=== PATIENT | female | born 1940 | race Caucasian/White ===

== ENCOUNTER 2017-12-22 16:00 | Observation (INO) ==
--- NOTE | 2017-12-22 18:21 | ED ---
HPI General Chief complaint: Altered Mental Status Stated complaint: Phy Sent/Neuro Time Seen by Provider: 12/22/17 17:31 Source: patient, family (caregiver), RN notes reviewed and old records reviewed Mode of arrival: ambulatory History of Present Illness HPI narrative: 77yF presenting with confusion. The patient was admitted several weeks ago to [facility] for encephalopathy (uncertain etiology), had a routine follow up appointment with her neurologist today and was sent to the ED for increased confusion from baseline. The patient states that for the past 1-2 weeks she's felt "foggy" and has a hard time finishing sentences or remembering to do things. She denies headache, fever or chills, cough, chest pain, nausea, or dysuria. She admits to chronic loose stools. She says "my doctor went down on 1 of my medications to 1 pill twice a day and I felt like it made me more confused so I increased it back to 2 pills twice a day, but I don't remember which medicine that was". She also reports that she's been eating Raisinettes when she feels like her sugar is low. Related Data Home Medications Medication Instructions Recorded Confirmed acetaminophen [Tylenol 8 Hour] 650 mg PO Q8H PRN 12/22/17 12/22/17 aspirin [Aspir-81] 81 mg PO DAILY 12/22/17 12/22/17 clonazepam 1 mg PO BID 12/22/17 12/22/17 coconut oil 2,000 mg PO DAILY 12/22/17 12/22/17 cod liver oil 1 cap PO DAILY 12/22/17 12/22/17 cyanocobalamin (vitamin B-12) 1,000 mcg PO DAILY 12/22/17 12/22/17 [Vitamin B-12] donepezil 10 mg PO DAILY 12/22/17 12/22/17 ifwgqwclfuo-chx-zmnthjecx-vitC 1,500 mg PO DAILY 12/22/17 12/22/17 [Glucosamine Complex-MSM] ibuprofen [Advil] 200 mg PO Q6-8H PRN [facility] 199912/22/17 12/22/17 lecithin 1,200 mg PO DAILY 12/22/17 12/22/17 levothyroxine 25 mcg PO DAILY 12/22/17 12/22/17 lisinopril 20 mg PO DAILY 12/22/17 12/22/17 lovastatin 20 mg PO HS 12/22/17 12/22/17 metformin 500 mg PO BID 12/22/17 12/22/17 multivitamin with iron [One Daily 1 tab/day PO DAILY 12/22/17 12/22/17 Multi-Vit w-Mineral] nifedipine 30 mg PO DAILY 12/22/17 12/22/17 sertraline 100 mg PO BID 12/22/17 12/22/17 triamterene-hydrochlorothiazid 1 tab PO DAILY 12/22/17 12/22/17 Allergies Allergy/AdvReac Type Severity Reaction Status Date / Time glucagon Allergy Unknown Unverified 10/21/16 16:54 Review of Systems ROS: all other systems reviewed are negative Constitutional Denies fever(s) Eyes Denies blurry vision ENT Denies nasal congestion Cardiovascular Denies chest pain Respiratory Denies cough Gastrointestinal Denies nausea Genitourinary Denies dysuria Musculoskeletal Denies back pain Neurologic Reports confusion Psychiatric Reports confusion PMFSH History History Provided By: Patient Medical History Medical History Diabetes (Acute) HTN (hypertension) (Acute) Memory change (Acute) Neuropathy (Acute) Social History Social History Substance History: No History of Abuse Smoking Status: Never smoker How Often Do You Have a Drink Containing Alcohol: Never Recent Travel in [facility] within the Last 8 Weeks: No Recent Out of Country Travel within the Last 8 Weeks: No Exam Const General: healthy appearing and no acute distress [facility] Head: normocephalic and atraumatic Face and sinus: normal facial exam Eyes General: appearance normal, both eyes and all related structures Pupils: PERRL Chest Chest: normal inspection of the chest Resp Effort & Inspection: normal respiratory effort Auscultation: no rhonchi and no wheezes Cardio Rate: regular rate Rhythm: regular rhythm GI Inspection: non-distended Palpation: soft and nontender Skin General: no rashes or lesions noted Neuro General: alert, awake, oriented x3 and no focal motor deficits Other: Forgetful, answers questions appropriately bag bailer II-XII grossly intact Speech clear and fluent Motor strength 5/5, no pronator drift Psych Affect: normal affect Course Initial Documented Vital Signs Temperature 98.1 F 12/22/17 16:03 Pulse Rate 72 12/22/17 16:03 Respiratory Rate 18 12/22/17 16:03 Blood Pressure 132/62 12/22/17 16:03 Pulse Oximetry 99 12/22/17 16:03 Last Documented Vital Signs Temperature 98.1 F 12/22/17 16:03 Pulse Rate 72 12/22/17 16:03 Respiratory Rate 18 12/22/17 16:03 Blood Pressure 132/62 12/22/17 16:03 Pulse Oximetry 99 12/22/17 16:03 Medical Decision Making MDM Narrative Medical decision making narrative: Assessment: 77yF presenting with confusion Plan: EKG and monitor Labs UA [facility] Addendum: Case discussed with Dr. Garcia ([facility]), who agrees with observing overnight./ MR head to work up acute confusion. The patient has had some workup at [facility] since November for confusion/ AMS but no recent MR brain. The patient and her caregiver understand and agree with plan. Medical Screen Exam Complete: Yes Emergency Medical Condition: Yes Differential Diagnosis Differential Diagnosis: Differential diagnosis includes, but is not limited to: UTI, ICH, electrolyte abnormality, anemia, thyroid disease, uremia, polypharmacy Medical Records Medical records reviewed: Yes I reviewed the patient's medical records. Creatinine on previous visits 2.0 Lab Data Lab results reviewed: Yes I reviewed the patient's lab results. Result diagrams: 12/22/17 18:30 12/22/17 18:30 Lab Results 12/22/17 12/22/17 12/22/17 Range/Units 18:18 18:30 18:30 WBC 9.4 (4.0-11.0) th/mm3 RBC 4.50 (4.00-5.30) mil/mm3 Hgb 12.4 (11.6-15.3) gm/dL Hct 35.3 (35.0-46.0) % MCV 78.4 L (80.0-100.0) fL MCH 27.6 (27.0-34.0) pg MCHC 35.2 (32.0-36.0) % RDW 15.7 (11.6-17.2) % Plt Count 197 (150-450) th/mm3 MPV 8.0 (7.0-11.0) fL Neut % (Auto) 64.8 (16.0-70.0) % Lymph % (Auto) 27.5 (9.0-44.0) % [place] % (Auto) 5.2 (0.0-8.0) % Eos % (Auto) 2.1 (0.0-4.0) % Baso % (Auto) 0.4 (0.0-2.0) % Neut # (Auto) 6.1 (1.8-7.7) th/mm3 Lymph # (Auto) 2.6 (1.0-4.8) th/mm3 [place] # (Auto) 0.5 (0.0-0.9) th/mm3 Eos # (Auto) 0.2 (0.0-0.4) th/mm3 Baso # (Auto) 0.0 (0.0-0.2) th/mm3 WBC Differential . Differential Comment Auto diff final PT 10.1 (9.8-11.6) sec INR 1.0 Ratio Puncture Site Intra-venous Patient Temperature 98.6 VBG pH 7.38 (7.360-7.400) VBG pCO2 40 L (44-48) mmHG VBG pO2 28 L* (35-40) mmHG VBG HCO3 23 (22-26) mmol/L VBG O2 Saturation 42 L (70-76) % VBG O2 Content 7.2 L (9.0-17.0) Vol % VBG Base Excess -1.0 (-2-2) mmol/L VBG Carboxyhemoglobin 0.8 (0-4) % VBG Methemoglobin 0.7 (0-2) % Hemoglobin 12.4 (12.0-16.0) G/DL Inspired O2 21 % Critical Value Yes Sodium (136-145) meq/L Potassium (3.5-5.1) meq/L Chloride (98-107) meq/L Carbon Dioxide (21.0-32.0) meq/L Anion Gap (5-15) meq/L BUN (7-18) mg/dL Creatinine (0.50-1.00) mg/dL Estimated GFR (>89) mL/min Random Glucose (74-106) mg/dL Calcium (8.5-10.1) mg/dL Total Bilirubin (0.2-1.0) mg/dL AST (15-37) U/L ALT (10-53) U/L Alkaline Phosphatase (45-117) U/L Ammonia (11-32) mcmol/L Total Protein (6.4-8.2) g/dL Albumin (3.4-5.0) g/dL TSH (0.358-3.740) uIU/mL Free T4 (0.76-1.46) ng/dL Urine Color (Yellw/Straw) Urine Clarity (Clear) Urine pH (5.0-8.5) Ur Specific [place] (1.002-1.035) Urine Protein (Neg-Trace) mg/dL Urine Glucose (UA) (Negative) mg/dL Urine Ketones (Negative) mg/dL Urine Occult Blood (Negative) Urine Nitrate (Negative) Urine Bilirubin (Negative) Urine Urobilinogen (Less than 2) mg/dL Ur Leukocyte Esterase (Negative) Urine WBC (0-5) /hpf Ur Squamous Epith Cells (0-5) /hpf Urine Bacteria (None) /hpf Urine Mucus (Occasional) /lpf Micro UA Comment Ur Microscopic Review Urine Culture Comments 12/22/17 12/22/17 12/22/17 Range/Units 18:30 18:30 18:30 WBC (4.0-11.0) th/mm3 RBC (4.00-5.30) mil/mm3 Hgb (11.6-15.3) gm/dL Hct (35.0-46.0) % MCV (80.0-100.0) fL MCH (27.0-34.0) pg MCHC (32.0-36.0) % RDW (11.6-17.2) % Plt Count (150-450) th/mm3 MPV (7.0-11.0) fL Neut % (Auto) (16.0-70.0) % Lymph % (Auto) (9.0-44.0) % [place] % (Auto) (0.0-8.0) % Eos % (Auto) (0.0-4.0) % Baso % (Auto) (0.0-2.0) % Neut # (Auto) (1.8-7.7) th/mm3 Lymph # (Auto) (1.0-4.8) th/mm3 [place] # (Auto) (0.0-0.9) th/mm3 Eos # (Auto) (0.0-0.4) th/mm3 Baso # (Auto) (0.0-0.2) th/mm3 WBC Differential Differential Comment PT (9.8-11.6) sec INR Ratio Puncture Site Patient Temperature VBG pH (7.360-7.400) VBG pCO2 (44-48) mmHG VBG pO2 (35-40) mmHG VBG HCO3 (22-26) mmol/L VBG O2 Saturation (70-76) % VBG O2 Content (9.0-17.0) Vol % VBG Base Excess (-2-2) mmol/L VBG Carboxyhemoglobin (0-4) % VBG Methemoglobin (0-2) % Hemoglobin (12.0-16.0) G/DL Inspired O2 % Critical Value Sodium 140 (136-145) meq/L Potassium 4.5 (3.5-5.1) meq/L Chloride 107 (98-107) meq/L Carbon Dioxide 22.8 (21.0-32.0) meq/L Anion Gap 10 (5-15) meq/L BUN 32 H (7-18) mg/dL Creatinine 1.54 H (0.50-1.00) mg/dL Estimated GFR 33 L (>89) mL/min Random Glucose 93 (74-106) mg/dL Calcium 9.5 (8.5-10.1) mg/dL Total Bilirubin 0.2 (0.2-1.0) mg/dL AST 15 (15-37) U/L ALT 17 (10-53) U/L Alkaline Phosphatase 66 (45-117) U/L Ammonia 12 (11-32) mcmol/L Total Protein 7.3 (6.4-8.2) g/dL Albumin 3.5 (3.4-5.0) g/dL TSH 7.480 H (0.358-3.740) uIU/mL Free T4 0.99 (0.76-1.46) ng/dL Urine Color (Yellw/Straw) Urine Clarity (Clear) Urine pH (5.0-8.5) Ur Specific [place] (1.002-1.035) Urine Protein (Neg-Trace) mg/dL Urine Glucose (UA) (Negative) mg/dL Urine Ketones (Negative) mg/dL Urine Occult Blood (Negative) Urine Nitrate (Negative) Urine Bilirubin (Negative) Urine Urobilinogen (Less than 2) mg/dL Ur Leukocyte Esterase (Negative) Urine WBC (0-5) /hpf Ur Squamous Epith Cells (0-5) /hpf Urine Bacteria (None) /hpf Urine Mucus (Occasional) /lpf Micro UA Comment Ur Microscopic Review Urine Culture Comments 12/22/17 Range/Units 22:30 WBC (4.0-11.0) th/mm3 RBC (4.00-5.30) mil/mm3 Hgb (11.6-15.3) gm/dL Hct (35.0-46.0) % MCV (80.0-100.0) fL MCH (27.0-34.0) pg MCHC (32.0-36.0) % RDW (11.6-17.2) % Plt Count (150-450) th/mm3 MPV (7.0-11.0) fL Neut % (Auto) (16.0-70.0) % Lymph % (Auto) (9.0-44.0) % [place] % (Auto) (0.0-8.0) % Eos % (Auto) (0.0-4.0) % Baso % (Auto) (0.0-2.0) % Neut # (Auto) (1.8-7.7) th/mm3 Lymph # (Auto) (1.0-4.8) th/mm3 [place] # (Auto) (0.0-0.9) th/mm3 Eos # (Auto) (0.0-0.4) th/mm3 Baso # (Auto) (0.0-0.2) th/mm3 WBC Differential Differential Comment PT (9.8-11.6) sec INR Ratio Puncture Site Patient Temperature VBG pH (7.360-7.400) VBG pCO2 (44-48) mmHG VBG pO2 (35-40) mmHG VBG HCO3 (22-26) mmol/L VBG O2 Saturation (70-76) % VBG O2 Content (9.0-17.0) Vol % VBG Base Excess (-2-2) mmol/L VBG Carboxyhemoglobin (0-4) % VBG Methemoglobin (0-2) % Hemoglobin (12.0-16.0) G/DL Inspired O2 % Critical Value Sodium (136-145) meq/L Potassium (3.5-5.1) meq/L Chloride (98-107) meq/L Carbon Dioxide (21.0-32.0) meq/L Anion Gap (5-15) meq/L BUN (7-18) mg/dL Creatinine (0.50-1.00) mg/dL Estimated GFR (>89) mL/min Random Glucose (74-106) mg/dL Calcium (8.5-10.1) mg/dL Total Bilirubin (0.2-1.0) mg/dL AST (15-37) U/L ALT (10-53) U/L Alkaline Phosphatase (45-117) U/L Ammonia (11-32) mcmol/L Total Protein (6.4-8.2) g/dL Albumin (3.4-5.0) g/dL TSH (0.358-3.740) uIU/mL Free T4 (0.76-1.46) ng/dL Urine Color Yellow (Yellw/Straw) Urine Clarity Hazy H (Clear) Urine pH 5.0 (5.0-8.5) Ur Specific [place] 1.011 (1.002-1.035) Urine Protein Negative (Neg-Trace) mg/dL Urine Glucose (UA) Negative (Negative) mg/dL Urine Ketones Negative (Negative) mg/dL Urine Occult Blood Negative (Negative) Urine Nitrate Negative (Negative) Urine Bilirubin Negative (Negative) Urine Urobilinogen Less than 2 (Less than 2) mg/dL Ur Leukocyte Esterase Trace H (Negative) Urine WBC 4 (0-5) /hpf Ur Squamous Epith Cells 9 (0-5) /hpf Urine Bacteria Rare H (None) /hpf Urine Mucus Few H (Occasional) /lpf Micro UA Comment Culture not ind Ur Microscopic Review Not Reportable Urine Culture Comments Culture not ind Imaging Data Radiologist's impression: Chest X-Ray 12/22/17 17:47 CONCLUSION: Subsegmental atelectasis at the lung bases. No effusion or pneumothorax. Head CT 12/22/17 17:47 CONCLUSION: 1. No acute intracranial abnormalities. . Discharge Plan Discharge Disposition Patient Disposition: 30 Still Patient Discharge Condition Condition: Stable Discharge Details Diagnosis: Altered mental status Physicians Team ED Provider: Aide Dunaway Primary Care Provider: Deny Johnson Rxs /Orders / Referrals /Forms Prescriptions: No Action metformin 500 mg Tablet 500 mg PO BID RF: 0 cod liver oil Capsule 1 cap PO DAILY RF: 0 lecithin 1,200 mg Capsule 1,200 mg PO DAILY RF: 0 donepezil 10 mg Tablet 10 mg PO DAILY RF: 0 lisinopril 20 mg Tablet 20 mg PO DAILY RF: 0 sertraline 100 mg Tablet 100 mg PO BID RF: 0 clonazepam 1 mg Tablet 1 mg PO BID RF: 0 cyanocobalamin (vitamin B-12) [Vitamin B-12] 1,000 mcg Tablet 1,000 mcg PO DAILY RF: 0 nifedipine 30 mg Tablet Extended Release 30 mg PO DAILY RF: 0 aspirin [Aspir-81] 81 mg Tablet,Delayed Release (Dr/Ec) 81 mg PO DAILY RF: 0 acetaminophen [Tylenol 8 Hour] 650 mg Tablet Extended Release 650 mg PO Q8H PRN (Reason: Pain) RF: 0 ibuprofen [Advil] 200 mg Tablet 200 mg PO Q6-8H MDD 2000 PRN (Reason: Acute Pain) RF: 0 triamterene-hydrochlorothiazid 37.5-25 mg Tablet 1 tab PO DAILY RF: 0 lovastatin 20 mg Tablet 20 mg PO HS RF: 0 multivitamin with iron [One Daily Multi-Vit w-Mineral] Tablet 1 tab/day PO DAILY RF: 0 cmzljfssuwz-rqc-jlrfulhvm-vitC [Glucosamine Complex-MSM] Capsule 1,500 mg PO DAILY RF: 0 levothyroxine 25 mcg Capsule 25 mcg PO DAILY RF: 0 coconut oil 1,000 mg Capsule 2,000 mg PO DAILY RF: 0 Status ED Status: With Doctor
[2017-12-22 18:26] LABS: VBG Blood Gas Oxygen Content 7.2 Vol % (9.0-17.0); VBG PCO2 40 mmHG (44-48); VBG PH 7.38 (7.360-7.400)
[2017-12-22 18:27] LABS: VBG PO2 28 mmHG (35-40)
[2017-12-22 18:44] LABS: Baso % (Auto) 0.4 % (0.0-2.0); Eos # (Auto) 0.2 th/mm3 (0.0-0.4); Eos % (Auto) 2.1 % (0.0-4.0); Hematocrit 35.3 % (35.0-46.0); Hemoglobin 12.4 gm/dL (11.6-15.3); Lymph # (Auto) 2.6 th/mm3 (1.0-4.8); Lymph % (Auto) 27.5 % (9.0-44.0); Mean Corpuscular HGB Conc 35.2 % (32.0-36.0); Mean Corpuscular Hemoglobin 27.6 pg (27.0-34.0); Mean Corpuscular Volume 78.4 fL (80.0-100.0); Mono # (Auto) 0.5 th/mm3 (0.0-0.9); Mono % (Auto) 5.2 % (0.0-8.0); Neut # (Auto) 6.1 th/mm3 (1.8-7.7); Neut % (Auto) 64.8 % (16.0-70.0); Platelet Count 197 th/mm3 (150-450); Red Cell Distribution Width 15.7 % (11.6-17.2); White Blood Count 9.4 th/mm3 (4.0-11.0)
--- NOTE | 2017-12-22 19:01 | XR ---
EXAM DATE: 12/22/2017 5:47 PM EDT AGE/SEX: 77 years / Female INDICATIONS: Cough, confusion. CLINICAL DATA: This is the patient's initial encounter. Patient reports that signs and symptoms have been present for 1 day and indicates a pain score of 0/10. MEDICAL/SURGICAL HISTORY: None. None. COMPARISON: [facility], CHEST SINGLE AP, 04/05/2015. . FINDINGS: A single AP view of the chest demonstrates the lungs to be symmetrically aerated without evidence of mass, infiltrate or effusion. Probable subsegmental atelectasis at the bases. The cardiomediastinal contours are unremarkable. Osseous structures are intact. CONCLUSION: Subsegmental atelectasis at the lung bases. No effusion or pneumothorax. Electronically signed by: Darwin Benitez MD 12/22/2017 7:00 PM EDT
[2017-12-22 19:02] LABS: Prothrombin Time 10.1 sec (9.8-11.6)
--- NOTE | 2017-12-22 19:13 | CT ---
EXAM DATE: 12/22/2017 5:53 PM EDT AGE/SEX: 77 years / Female INDICATIONS: Altered mental status. CLINICAL DATA: This is the patient's initial encounter. Patient reports that signs and symptoms have been present for 1 day and indicates a pain score of 0/10. MEDICAL/SURGICAL HISTORY: None. None. RADIATION DOSE: 40.47 CTDI (mGy) COMPARISON: [facility], CT BRAIN W/O CONTRAST, 12/11/2016. . TECHNIQUE: CT of the head without contrast. Using automated exposure control and adjustment of the mA and/or kV according to patient size, radiation dose was kept as low as reasonably achievable to ob tain optimal diagnostic quality images. DICOM format image data is available electronically for revi ew and comparison. FINDINGS: Cerebrum: The ventricles are normal for age. No evidence of midline shift, mass lesion, hemorrhage or acute infarction. No extraaxial fluid collections are seen. Posterior Fossa: The cerebellum and brainstem are intact. The 4th ventricle is midline. The cerebe llopontine angle is unremarkable. Extracranial: The visualized portion of the orbits is intact. Skull: The calvaria is intact. No evidence of skull fracture. CONCLUSION: 1. No acute intracranial abnormalities. . Electronically signed by: Darwin Benitez MD 12/22/2017 7:12 PM EDT
[2017-12-22 19:27] LABS: Albumin 3.5 g/dL (3.4-5.0); Anion Gap 10 meq/L (5-15); Aspartate Aminotransferase 15 U/L (15-37); Blood Urea Nitrogen 32 mg/dL (7-18); Calcium 9.5 mg/dL (8.5-10.1); Carbon Dioxide 22.8 meq/L (21.0-32.0); Chloride 107 meq/L (98-107); Glomerular Filtration Rate 33 mL/min (>89); Glucose,Random 93 mg/dL (74-106); Potassium 4.5 meq/L (3.5-5.1); Sodium 140 meq/L (136-145)
[2017-12-22 19:37] LABS: Alanine Aminotransferase 17 U/L (10-53); Alkaline Phosphatase 66 U/L (45-117); Total Protein 7.3 g/dL (6.4-8.2)
[2017-12-22 22:54] LABS: Amphetamine Screen,Urine Neg (Neg); Barbiturate Screen,Urine Neg (Neg); Cannabinoid Screen,Urine Neg (Neg); Cocaine Screen,Urine Neg (Neg)
[2017-12-22 23:08] LABS: Bacteria,Urine Rare /hpf; Bilirubin,Urine Negative (Negative); Clarity,Urine Hazy (Clear); Color,Urine Yellow (Yellw/Straw); Glucose,Urine (UA) Negative (Negative); Leukocyte Esterase,Urine Trace (Negative); Mucus,Urine Few /lpf (Occasional); Nitrite,Urine Negative (Negative); Specific Gravity,Urine 1.011 (1.002-1.035); Squamous Epithelial Cell,Urine 9 /hpf (0-5)
[2017-12-22 23:19] LABS: Opiate Screen,Urine Neg (Neg)
--- NOTE | 2017-12-22 23:35 | P.HP ---
History of Present Illness Service: [facility] adult med Primary Care Physician: Deny Johnson Chief Complaint: AMS History of Present Illness: 77yF with hx of dementia, schizoaffective d/o presents with increased confusion. The patient reportedly was admitted several weeks ago to [facility] for encephalopathy (uncertain etiology) although I can't locate any such records in outpt EMR. Pt had a routine follow up appointment with her neurologist, Dr Wang today and was reportedly sent to the ED for increased confusion from baseline. Review of neurology note indicates that pt was likely advised to f/u with [facility] or her PCP for possible CT scan, u/a and other workup. The patient states that for the past 1-2 weeks she's felt "foggy" and has a hard time finishing sentences or remembering to do things. No head trauma. She denies headache, fever or chills, cough, chest pain, nausea, or dysuria. She admits to chronic loose stools, but no blood in stool. She says " my doctor went down on 1 of my medications to 1 pill twice a day and I felt like it made me more confused so I increased it back to 2 pills twice a day, but I don't remember which medicine that was". On review of outpt notes it appears that her metformin was decreased to 1 pill BID in Nov 2017 and that her A1c was 5.5 at that time. She has a caregiver who lives with her and has done so for appx 1 yr. Her daughter lives next door. PMH Anxiety CKD3 DM nephropathyangiopathy Encephalopathy HTN Hyperlipidemia Hypothyroidism Short term memory disturbance Morbid obesity Schizoaffective d/o B12 and vit D def PSH Choly 1995 Exploratory breast surgery 1990 LATIA 2002 Cataract surgery bilat Soc Hx No tobacco since 1989, prior 1ppd x 30 yrs No EtOH/illicits x2, , lives with caregiver Retired - Diagnosis (1) Memory change (2) CKD (chronic kidney disease) stage 3, GFR 30-59 ml/min (3) Diabetes (4) HTN (hypertension) (5) Schizoaffective disorder Review of Systems Pt is poor historian and hx is obtained from pt, EMR review and with assistance from her caregiver. Eyes: Denies blind spots, Denies blurry vision, Denies bulging eyes, Denies change in vision, Denies double vision, Denies discharge, Denies dry eyes, Denies floaters, Denies irritation, Denies itchy eyes, Denies loss of vision, Denies pain, Denies requires corrective lenses, Denies sensitivity to light, Denies other Cardiovascular: Denies chest pain, Denies chest pain at rest, Denies chest pain with activity, Denies excessive sweating, Denies fainting, Denies fast heart rate, Denies foot swelling, Denies generalized swelling, Denies irregular heart rhythm, Denies leg pain with activity, Denies leg sores, Denies leg swelling, Denies lightheadedness, Denies radiating jaw, neck or arm pain, Denies rapid, pounding, or irregular heartbeat, Denies shortness of breath, Denies shortness of breath with activity, Denies shortness of breath when lying down, Denies shortness of breath causing sudden awakening, Denies slow heart rate, Denies other Respiratory: Denies change in phlegm color, Denies chest congestion, Denies cough, Denies coughing up blood, Denies excessive phlegm production, Denies pain on inspiration, Denies pain with cough, Denies shortness of breath, Denies shortness of breath with activity, Denies snoring, Denies stridor, Denies wheezing, Denies other Gastrointestinal: Reports loose stools, Reports nausea, Denies abdominal pain, Denies belching, Denies black, tarry stools, Denies bloating, Denies bright, red blood in stools, Denies change in bowel habits, Denies constant urge to pass stool, Denies change in stools, Denies coffee ground vomit, Denies constipation, Denies cramping, Denies difficulty swallowing, Denies excessive passing of gas, Denies feeling full early, Denies heartburn, Denies incontinent of stools, Denies pain with swallowing, Denies vomiting, Denies vomiting blood, Denies other Neurologic: Reports confusion, Reports unsteadiness Psychiatric: Reports anxiety, Reports memory loss [facility] - History History Provided By: Patient - Medical History Medical History: Medical History (Last Reviewed 12/22/17 @ 19:45 by Aide Dunaway DO) Diabetes HTN (hypertension) Memory change Neuropathy - Tobacco History Smoking Status: Never smoker - Alcohol History How Often Do You Have a Drink Containing Alcohol: Never - Substance Use History Substance History: No History of Abuse - Travel History Recent Travel in the [place] Within the Last 8 Weeks: No Recent Travel Out of the Country Within the Last 8 Weeks: No - Immunization History Tetanus Immunization: Unsure Medications and Allergies Active Medications: Active Medications Sodium Chloride (Ns Flush) 2 ml IV.FLUSH PRN PRN PRN Reason: FLUSH AFTER USING IV ACCESS Allergies Allergy/AdvReac Type Severity Reaction Status Date / Time glucagon Allergy Unknown Unverified 10/21/16 16:54 Home Medications Medication Instructions Recorded Confirmed Type acetaminophen [Tylenol 8 Hour] 650 mg PO Q8H PRN 12/22/17 12/22/17 History aspirin [Aspir-81] 81 mg PO DAILY 12/22/17 12/22/17 History clonazepam 1 mg PO BID 12/22/17 12/22/17 History coconut oil 2,000 mg PO DAILY 12/22/17 12/22/17 History cod liver oil 1 cap PO DAILY 12/22/17 12/22/17 History cyanocobalamin (vitamin B-12) 1,000 mcg PO DAILY 12/22/17 12/22/17 History [Vitamin B-12] donepezil 10 mg PO DAILY 12/22/17 12/22/17 History znhefcggagh-kia-msyygdfow-vitC 1,500 mg PO DAILY 12/22/17 12/22/17 History [Glucosamine Complex-MSM] ibuprofen [Advil] 200 mg PO Q6-8H PRN MDD 199912/22/17 12/22/17 History lecithin 1,200 mg PO DAILY 12/22/17 12/22/17 History levothyroxine 25 mcg PO DAILY 12/22/17 12/22/17 History lisinopril 20 mg PO DAILY 12/22/17 12/22/17 History lovastatin 20 mg PO HS 12/22/17 12/22/17 History metformin 500 mg PO BID 12/22/17 12/22/17 History multivitamin with iron [One Daily 1 tab/day PO DAILY 12/22/17 12/22/17 History Multi-Vit w-Mineral] nifedipine 30 mg PO DAILY 12/22/17 12/22/17 History sertraline 100 mg PO BID 12/22/17 12/22/17 History triamterene-hydrochlorothiazid 1 tab PO DAILY 12/22/17 12/22/17 History Exam Vital signs: Vital Signs 12/22/17 16:03 Temperature 98.1 F Pulse Rate 72 Respiratory Rate 18 Blood Pressure 132/62 Pulse Oximetry 99 Intake & Output 12/22/17 12/22/17 12/23/17 06:59 18:59 06:59 Weight 81.647 kg Narrative: GENERAL: Pleasant, ambulating independently, somewhat confused and tangential with direct questioning. Not oriented to date, but aware of surroundings and events leading up to her ER visit. Attempts to consult her caregiver who is in room when she is questioned. SKIN: Warm and dry. HEAD: Atraumatic. Normocephalic. EYES: Pupils equal and round. No scleral icterus. No injection or drainage. ENT: No nasal bleeding or discharge. Mucous membranes pink and moist. NECK: Trachea midline. No JVD. CARDIOVASCULAR: Regular rate and rhythm. RESPIRATORY: No accessory muscle use. Clear to auscultation. Breath sounds equal bilaterally. GASTROINTESTINAL: Abdomen soft, non-tender, nondistended. Hepatic and splenic margins not palpable. MUSCULOSKELETAL: Extremities without clubbing, cyanosis, or edema. No obvious deformities. NEUROLOGICAL: Awake and alert. No obvious cranial nerve deficits. Motor grossly within normal limits. Five out of 5 muscle strength in the arms and legs. Normal speech. PSYCHIATRIC: Appropriate mood and affect; jovial; some disorientation/confusion as noted Results - Labs CBC & Chem 7: 12/22/17 18:30 12/22/17 18:30 Labs: Laboratory Results - last 24 hr 12/22/17 12/22/17 12/22/17 18:18 18:30 18:30 WBC 9.4 RBC 4.50 Hgb 12.4 Hct 35.3 MCV 78.4 L MCH 27.6 MCHC 35.2 RDW 15.7 Plt Count 197 MPV 8.0 Neut % (Auto) 64.8 Lymph % (Auto) 27.5 [place] % (Auto) 5.2 Eos % (Auto) 2.1 Baso % (Auto) 0.4 Neut # (Auto) 6.1 Lymph # (Auto) 2.6 [place] # (Auto) 0.5 Eos # (Auto) 0.2 Baso # (Auto) 0.0 WBC Differential . Differential Comment Auto diff final PT 10.1 INR 1.0 Puncture Site Intra-venous Patient Temperature 98.6 VBG pH 7.38 VBG pCO2 40 L VBG pO2 28 L* VBG HCO3 23 VBG O2 Saturation 42 L VBG O2 Content 7.2 L VBG Base Excess -1.0 VBG Carboxyhemoglobin 0.8 VBG Methemoglobin 0.7 Hemoglobin 12.4 Inspired O2 21 Critical Value Yes Sodium Potassium Chloride Carbon Dioxide Anion Gap BUN Creatinine Estimated GFR Random Glucose Calcium Total Bilirubin AST ALT Alkaline Phosphatase Ammonia Total Protein Albumin TSH Free T4 12/22/17 12/22/17 12/22/17 18:30 18:30 18:30 WBC RBC Hgb Hct MCV MCH MCHC RDW Plt Count MPV Neut % (Auto) Lymph % (Auto) [place] % (Auto) Eos % (Auto) Baso % (Auto) Neut # (Auto) Lymph # (Auto) [place] # (Auto) Eos # (Auto) Baso # (Auto) WBC Differential Differential Comment PT INR Puncture Site Patient Temperature VBG pH VBG pCO2 VBG pO2 VBG HCO3 VBG O2 Saturation VBG O2 Content VBG Base Excess VBG Carboxyhemoglobin VBG Methemoglobin Hemoglobin Inspired O2 Critical Value Sodium 140 Potassium 4.5 Chloride 107 Carbon Dioxide 22.8 Anion Gap 10 BUN 32 H Creatinine 1.54 H Estimated GFR 33 L Random Glucose 93 Calcium 9.5 Total Bilirubin 0.2 AST 15 ALT 17 Alkaline Phosphatase 66 Ammonia 12 Total Protein 7.3 Albumin 3.5 TSH 7.480 H Free T4 0.99 - Imaging Impressions Chest X-Ray 12/22/17 17:47 CONCLUSION: Subsegmental atelectasis at the lung bases. No effusion or pneumothorax. Head CT 12/22/17 17:47 CONCLUSION: 1. No acute intracranial abnormalities. . Caprini VTE Risk Assessment Caprini VTE Risk Assessment: Moderate/High Risk (score >= 2) Caprini Risk Assessment Model: Point Value = 1 Point Value = 2 Point Value = 3 Point Value = 5 Age 41-60 Minor surgery BMI > 25 kg/m2 Swollen legs Varicose veins or History of unexplained or recurrent spontaneous Oral contraceptives or hormone replacement Sepsis (< 1 month) Serious lung disease, including pneumonia (< 1 month) Abnormal pulmonary function Acute myocardial infarction Congestive heart failure (< 1 month) History of inflammatory bowel disease Medical patient at bed rest Age 61-74 Arthroscopic surgery Major open surgery (> 45 min) Laparoscopic surgery (> 45 min) Malignancy Confined to bed (> 72 hours) Immobilizing plaster cast Central venous access Age >= 75 History of VTE Family history of VTE Factor V Leiden Prothrombin [id number] Lupus anticoagulant Anticardiolipin antibodies Elevated serum homocysteine Heparin-induced thrombocytopenia Other congenital or acquired thrombophilia Stroke (< 1 month) Elective arthroplasty Hip, pelvis, or leg fracture Acute spinal cord injury (< 1 month) Prophylaxis Regimen: Total Risk Factor Score Risk Level Prophylaxis Regimen 0-1 Low Early ambulation 2 Moderate Order ONE of the following: *Sequential Compression Device (SCD) *Heparin 5000 units SQ BID 3-4 Higher Order ONE of the following medications: *Heparin 5000 units SQ TID *Enoxaparin/Lovenox 40 mg SQ daily (WT < 150 kg, CrCl > 30 mL/min) *Enoxaparin/Lovenox 30 mg SQ daily (WT < 150 kg, CrCl > 10-29 mL/min) *Enoxaparin/Lovenox 30 mg SQ BID (WT < 150 kg, CrCl > 30 mL/min) AND/OR *Sequential Compression Device (SCD) 5 or more Highest Order ONE of the following medications: *Heparin 5000 units SQ TID (Preferred with Epidurals) *Enoxaparin/Lovenox 40 mg SQ daily (WT < 150 kg, CrCl > 30 mL/min) *Enoxaparin/Lovenox 30 mg SQ daily (WT < 150 kg, CrCl > 10-29 mL/min) *Enoxaparin/Lovenox 30 mg SQ BID (WT < 150 kg, CrCl > 30 mL/min) AND *Sequential Compression Device (SCD) Assessment and Plan - Assessment (1) Memory change Code(s): R41.3 - Other amnesia Status: Acute Plan: ? etiology of encephalopathy. She has memory disturbance dating back at least one year. MRI ordered. Will observe pt as apparently last 10 days represent a change in her baseline. U/A pending. (2) CKD (chronic kidney disease) stage 3, GFR 30-59 ml/min Code(s): N18.3 - Chronic kidney disease, stage 3 (moderate) Status: Chronic Plan: GFR relatively stable. Will hold diurectic for now. (3) Diabetes Code(s): E11.9 - Type 2 diabetes mellitus without complications Status: Chronic Plan: Has been quiet well controlled. Metformin was decreased last month and outpt A1c was 5.5 in Nov 2017. she may be having some hypoglycemic episodes contributing to AMS. Will follow sugars. ADA diet. (4) HTN (hypertension) Code(s): I10 - Essential (primary) hypertension Status: Chronic Plan: Resume meds as tolerated (5) Schizoaffective disorder Code(s): F25.9 - Schizoaffective disorder, unspecified Status: Acute Plan: Reviewed outpt MH notes. Pt has reportedly been doing quite well. Will continue meds - Plan Code Status: full Discussed Condition With: Pt, caregiver and ER physician (3) Diabetes Qualifiers: Diabetes mellitus type: type 2 Diabetes mellitus complication status: with kidney complications (4) HTN (hypertension) Qualifiers: Hypertension type: essential hypertension Qualified Code(s): I10 - Essential (primary) hypertension
[2017-12-22] MEDS ORDERED: Dextrose 50% in Water 50 ML Vial IV.PUSH PRN (23:37)
[2017-12-23] MEDS: Levothyroxine 50 MCG Tablet PO SCH (06:47)
[2017-12-23] MEDS: Insulin NovoLOG Aspart Correctional Sugar Inj SQ SCH ×4 (08:10→22:37)
[2017-12-23] MEDS ORDERED: LECITHIN 1200 MG PO SCH (09:00)
[2017-12-23] MEDS: Lisinopril 20 MG Tablet PO SCH (09:50)
[2017-12-23] MEDS: Sertraline 100 MG Tablet PO SCH ×2 (09:50→21:12)
[2017-12-23] MEDS: Multivitamin/Minerals Therapeutic Tablet PO SCH (09:50)
[2017-12-23] MEDS: clonazePAM 1 MG Tablet PO SCH ×2 (09:50→21:13)
[2017-12-23] MEDS ORDERED: Petrolatum/Shark Oil/Phenylephrine Oint 60 GM Tube RECTAL PRN (10:00)
--- NOTE | 2017-12-23 11:46 | P.PNIM ---
Subjective Interval history: Pt feeling well today She is awake and oriented to self and place She has difficulty with time and gets confused with dates, past and present Pt reports that she has been ambulating to the bathroom without difficulty Physical Exam Vital signs: Vital Signs 12/22/17 16:03 12/23/17 00:00 12/23/17 04:00 Temperature 98.1 F 97.8 F Pulse Rate 72 75 84 Respiratory Rate 18 16 16 Blood Pressure 132/62 124/59 L 166/74 H Pulse Oximetry 99 98 98 12/23/17 07:40 12/23/17 07:48 Temperature 97.6 F Pulse Rate 77 Respiratory Rate 18 Blood Pressure 138/66 Pulse Oximetry 98 98 Intake & Output 12/22/17 12/23/17 12/23/17 18:59 06:59 18:59 Intake Total 100 / 100 Balance 100 / 100 Weight 81.647 kg Intake: IV 100 / 100 Rocephin Inj 1,000 MG In NS Inj 100 / 100 100 ML @ 200 mls/hr IV.SIG ONCE ONE Rx#:[id number] Other: # Voids 2 Date of Last Bowel Movement 12/22/17 Narrative: GENERAL: Pleasant, ambulating independently, somewhat confused and tangential with direct questioning. Not oriented to date CARDIO: Regular RESP: Clear to auscultation bilaterally. ABD: +BS, soft, non-tender, nondistended. EXT: Extremities without clubbing, cyanosis, or edema. No obvious deformities. NEURO: Awake and alert. No obvious cranial nerve deficits. Motor grossly within normal limits. Five out of 5 muscle strength in the arms and legs. Normal speech. PSYCHIATRIC: Appropriate mood and affect; jovial; some disorientation/confusion as noted Results - Labs CBC & Chem 7: 12/22/17 18:30 12/22/17 18:30 Laboratory Results - last 24 hr 12/22/17 12/22/17 12/22/17 18:18 18:30 18:30 WBC 9.4 RBC 4.50 Hgb 12.4 Hct 35.3 MCV 78.4 L MCH 27.6 MCHC 35.2 RDW 15.7 Plt Count 197 MPV 8.0 Neut % (Auto) 64.8 Lymph % (Auto) 27.5 [place] % (Auto) 5.2 Eos % (Auto) 2.1 Baso % (Auto) 0.4 Neut # (Auto) 6.1 Lymph # (Auto) 2.6 [place] # (Auto) 0.5 Eos # (Auto) 0.2 Baso # (Auto) 0.0 WBC Differential . Differential Comment Auto diff final PT 10.1 INR 1.0 Puncture Site Intra-venous Patient Temperature 98.6 VBG pH 7.38 VBG pCO2 40 L VBG pO2 28 L* VBG HCO3 23 VBG O2 Saturation 42 L VBG O2 Content 7.2 L VBG Base Excess -1.0 VBG Carboxyhemoglobin 0.8 VBG Methemoglobin 0.7 Hemoglobin 12.4 Inspired O2 21 Critical Value Yes Sodium Potassium Chloride Carbon Dioxide Anion Gap BUN Creatinine Estimated GFR POC Glucose Random Glucose Calcium Total Bilirubin AST ALT Alkaline Phosphatase Ammonia Total Protein Albumin Vitamin B12 TSH Free T4 Urine Color Urine Clarity Urine pH Ur Specific [place] Urine Protein Urine Glucose (UA) Urine Ketones Urine Occult Blood Urine Nitrate Urine Bilirubin Urine Urobilinogen Ur Leukocyte Esterase Urine WBC Ur Squamous Epith Cells Urine Bacteria Urine Mucus Micro UA Comment Ur Microscopic Review Urine Culture Comments Urine Opiates Screen Ur Barbiturates Screen Ur Amphetamines Screen U Benzodiazepines Scrn Urine Cocaine Screen U Cannabinoids Screen 12/22/17 12/22/17 12/22/17 18:30 18:30 18:30 WBC RBC Hgb Hct MCV MCH MCHC RDW Plt Count MPV Neut % (Auto) Lymph % (Auto) [place] % (Auto) Eos % (Auto) Baso % (Auto) Neut # (Auto) Lymph # (Auto) [place] # (Auto) Eos # (Auto) Baso # (Auto) WBC Differential Differential Comment PT INR Puncture Site Patient Temperature VBG pH VBG pCO2 VBG pO2 VBG HCO3 VBG O2 Saturation VBG O2 Content VBG Base Excess VBG Carboxyhemoglobin VBG Methemoglobin Hemoglobin Inspired O2 Critical Value Sodium 140 Potassium 4.5 Chloride 107 Carbon Dioxide 22.8 Anion Gap 10 BUN 32 H Creatinine 1.54 H Estimated GFR 33 L POC Glucose Random Glucose 93 Calcium 9.5 Total Bilirubin 0.2 AST 15 ALT 17 Alkaline Phosphatase 66 Ammonia 12 Total Protein 7.3 Albumin 3.5 Vitamin B12 TSH 7.480 H Free T4 0.99 Urine Color Urine Clarity Urine pH Ur Specific [place] Urine Protein Urine Glucose (UA) Urine Ketones Urine Occult Blood Urine Nitrate Urine Bilirubin Urine Urobilinogen Ur Leukocyte Esterase Urine WBC Ur Squamous Epith Cells Urine Bacteria Urine Mucus Micro UA Comment Ur Microscopic Review Urine Culture Comments Urine Opiates Screen Ur Barbiturates Screen Ur Amphetamines Screen U Benzodiazepines Scrn Urine Cocaine Screen U Cannabinoids Screen 12/22/17 12/22/17 12/22/17 18:30 22:30 22:30 WBC RBC Hgb Hct MCV MCH MCHC RDW Plt Count MPV Neut % (Auto) Lymph % (Auto) [place] % (Auto) Eos % (Auto) Baso % (Auto) Neut # (Auto) Lymph # (Auto) [place] # (Auto) Eos # (Auto) Baso # (Auto) WBC Differential Differential Comment PT INR Puncture Site Patient Temperature VBG pH VBG pCO2 VBG pO2 VBG HCO3 VBG O2 Saturation VBG O2 Content VBG Base Excess VBG Carboxyhemoglobin VBG Methemoglobin Hemoglobin Inspired O2 Critical Value Sodium Cancelled Potassium Cancelled Chloride Cancelled Carbon Dioxide Cancelled Anion Gap Cancelled BUN Cancelled Creatinine Cancelled Estimated GFR Cancelled POC Glucose Random Glucose Cancelled Calcium Cancelled Total Bilirubin AST ALT Alkaline Phosphatase Ammonia Total Protein Albumin Vitamin B12 533 TSH Free T4 Urine Color Yellow Urine Clarity Hazy H Urine pH 5.0 Ur Specific [place] 1.011 Urine Protein Negative Urine Glucose (UA) Negative Urine Ketones Negative Urine Occult Blood Negative Urine Nitrate Negative Urine Bilirubin Negative Urine Urobilinogen Less than 2 Ur Leukocyte Esterase Trace H Urine WBC 4 Ur Squamous Epith Cells 9 Urine Bacteria Rare H Urine Mucus Few H Micro UA Comment Culture not ind Ur Microscopic Review Not Reportable Urine Culture Comments Culture not ind Urine Opiates Screen Neg Ur Barbiturates Screen Neg Ur Amphetamines Screen Neg U Benzodiazepines Scrn Neg Urine Cocaine Screen Neg U Cannabinoids Screen Neg 12/23/17 08:10 WBC RBC Hgb Hct MCV MCH MCHC RDW Plt Count MPV Neut % (Auto) Lymph % (Auto) [place] % (Auto) Eos % (Auto) Baso % (Auto) Neut # (Auto) Lymph # (Auto) [place] # (Auto) Eos # (Auto) Baso # (Auto) WBC Differential Differential Comment PT INR Puncture Site Patient Temperature VBG pH VBG pCO2 VBG pO2 VBG HCO3 VBG O2 Saturation VBG O2 Content VBG Base Excess VBG Carboxyhemoglobin VBG Methemoglobin Hemoglobin Inspired O2 Critical Value Sodium Potassium Chloride Carbon Dioxide Anion Gap BUN Creatinine Estimated GFR POC Glucose 124 H Random Glucose Calcium Total Bilirubin AST ALT Alkaline Phosphatase Ammonia Total Protein Albumin Vitamin B12 TSH Free T4 Urine Color Urine Clarity Urine pH Ur Specific [place] Urine Protein Urine Glucose (UA) Urine Ketones Urine Occult Blood Urine Nitrate Urine Bilirubin Urine Urobilinogen Ur Leukocyte Esterase Urine WBC Ur Squamous Epith Cells Urine Bacteria Urine Mucus Micro UA Comment Ur Microscopic Review Urine Culture Comments Urine Opiates Screen Ur Barbiturates Screen Ur Amphetamines Screen U Benzodiazepines Scrn Urine Cocaine Screen U Cannabinoids Screen - Imaging Impressions Chest X-Ray 12/22/17 17:47 CONCLUSION: Subsegmental atelectasis at the lung bases. No effusion or pneumothorax. Head CT 12/22/17 17:47 CONCLUSION: 1. No acute intracranial abnormalities. . Assessment and Plan - Assessment (1) Memory change Code(s): R41.3 - Other amnesia Status: Acute Plan: Memory change ? etiology of encephalopathy. She has memory disturbance dating back at least one year. MRI ordered. Will observe pt as apparently last 10 days represent a change in her baseline. U/A pending. CKD (chronic kidney disease) stage 3, GFR 30-59 ml/min GFR relatively stable. Will hold diurectic for now. Diabetes Has been quiet well controlled. Metformin was decreased last month and outpt A1c was 5.5 in Nov 2017. she may be having some hypoglycemic episodes contributing to AMS. Will follow sugars. ADA diet. HTN (hypertension) Resume meds as tolerated Schizoaffective disorder Reviewed outpt notes. Pt has reportedly been doing quite well. Will continue meds (2) CKD (chronic kidney disease) stage 3, GFR 30-59 ml/min Code(s): N18.3 - Chronic kidney disease, stage 3 (moderate) Status: Chronic (3) Schizoaffective disorder Code(s): F25.9 - Schizoaffective disorder, unspecified Status: Acute (4) Diabetes Code(s): E11.9 - Type 2 diabetes mellitus without complications Status: Chronic (5) HTN (hypertension) Code(s): I10 - Essential (primary) hypertension Status: Chronic (4) Diabetes Qualifiers: Diabetes mellitus type: type 2 Diabetes mellitus complication status: with kidney complications (5) HTN (hypertension) Qualifiers: Hypertension type: essential hypertension Qualified Code(s): I10 - Essential (primary) hypertension
--- NOTE | 2017-12-23 20:19 | MR ---
EXAM DATE: 12/23/2017 6:37 PM EDT AGE/SEX: 77 years / Female INDICATIONS: Altered mental status. CVA. CLINICAL DATA: This is the patient's subsequent encounter. Patient reports that signs and symptoms h ave been present for 2 days and indicates a pain score of 1/10. MEDICAL/SURGICAL HISTORY: Diabetes. Hypertension. Cholecystectomy. Cataracts. COMPARISON: No prior exams available for comparison. TECHNIQUE: Multiplanar, multisequence examination of the brain was performed without contrast. FINDINGS: No intracranial mass or midline shift. No hydrocephalus. Mild white matter ischemic changes in the pe riventricular region and to a lesser extent in the brainstem. No recent infarct. No abnormal extra-axial fluid collections. No sellar mass identified. Small retent ion cyst in the right maxillary sinus. CONCLUSION: 1. No acute findings. Mild chronic white matter ischemic changes. No recent infarct. Electronically signed by: Darwin Benitez MD 12/23/2017 8:18 PM EDT
--- NOTE | 2017-12-23 20:19 | ECG ---
Date Performed: 12/23/2017 Time Performed: 00:31:22 PTAGE: 77 years EKG: Sinus rhythm RIGHT BUNDLE BRANCH BLOCK When compared to previous tracing, right bundl branch block is New. ABNORM AL ECG PREVIOUS TRACING : 04/05/2015 11.56 DOCTOR: Prasanna Deras Interpretating Date/Time 12/23/2017 20:18:33
[2017-12-24] MEDS: Levothyroxine 50 MCG Tablet PO SCH (05:33)
[2017-12-24] MEDS: Insulin NovoLOG Aspart Correctional Sugar Inj SQ SCH (08:27)
--- NOTE | 2017-12-24 09:12 | P.PNIM ---
Subjective Interval history: Pt had some increased confusion yesterday afternoon/evening and was threatening to leave AMA She reportedly slept well last night Pt is pleasant this morning, not combative. Physical Exam Vital signs: Vital Signs 12/23/17 13:54 12/23/17 15:57 12/23/17 20:00 Temperature 98.4 F 97.3 F L 98.0 F Pulse Rate 82 90 81 Respiratory Rate 20 20 16 Blood Pressure 133/72 152/64 H 164/68 H Pulse Oximetry 97 96 97 12/24/17 04:00 12/24/17 08:15 Temperature 97.5 F L 98.0 F Pulse Rate 80 70 Respiratory Rate 16 16 Blood Pressure 138/65 135/62 Pulse Oximetry 97 97 Intake & Output 12/23/17 12/24/17 12/24/17 18:59 06:59 18:59 Other: # Voids 3 Date of Last Bowel Movement 12/23/17 12/23/17 Narrative: GENERAL: Pleasant, ambulating independently, somewhat confused and tangential with direct questioning. Not oriented to date CARDIO: Regular RESP: Clear to auscultation bilaterally. ABD: +BS, soft, non-tender, nondistended. EXT: Extremities without clubbing, cyanosis, or edema. No obvious deformities. NEURO: Awake and alert. No obvious cranial nerve deficits. Motor grossly within normal limits. Five out of 5 muscle strength in the arms and legs. Normal speech. PSYCHIATRIC: Appropriate mood and affect; jovial; some disorientation/confusion as noted Results - Labs CBC & Chem 7: 12/22/17 18:30 12/22/17 18:30 Laboratory Results - last 24 hr 12/23/17 12/23/17 12/23/17 12:24 17:18 22:02 POC Glucose 137 H 120 H 145 H 12/24/17 08:26 POC Glucose 129 H - Imaging Impressions Head MRI 12/23/17 23:12 CONCLUSION: 1. No acute findings. Mild chronic white matter ischemic changes. No recent infarct. Assessment and Plan - Assessment (1) Memory change Code(s): R41.3 - Other amnesia Status: Acute Plan: Memory change Dementia - She has memory disturbance dating back at least one year. - Pt was admitted with worsening confusion from baseline and was sent over by her Neurologist, Dr. Wang. - MRI (12/23/17): No acute findings. Mild chronic white matter ischemic changes. No recent infarct. - U/A was negative - No evidence of infection - Its thought that perhaps her increased confusion is likely related to her dementia - We will discharge the pt back to home today and she will need to followup with her PCP, Dr. Johnson, in 1 week. The exam, history, and the medical decision-making described in the above note were completed with the assistance of the mid-level provider. I reviewed and agree with the findings presented. I attest that I had a [id number] encounter with the patient on the same day, and personally performed and documented my assessment and findings in the medical record. CKD (chronic kidney disease) stage 3, GFR 30-59 ml/min - GFR relatively stable. - Diuretic was held at admission Diabetes - This has been quiet well controlled. - Metformin was decreased last month and outpt A1c was 5.5 in Nov 2017. Pt had increased the Metformin back to 2 tablets BID recently. She may have been having some hypoglycemic episodes contributing to AMS as well. - ADA diet. - Pts BS have been stable here at the hospital. HTN (hypertension) - Resume meds as tolerated Schizoaffective disorder - Reviewed outpt notes. Pt has reportedly been doing quite well. Will continue meds (2) CKD (chronic kidney disease) stage 3, GFR 30-59 ml/min Code(s): N18.3 - Chronic kidney disease, stage 3 (moderate) Status: Chronic (3) Schizoaffective disorder Code(s): F25.9 - Schizoaffective disorder, unspecified Status: Acute (4) Diabetes Code(s): E11.9 - Type 2 diabetes mellitus without complications Status: Chronic (5) HTN (hypertension) Code(s): I10 - Essential (primary) hypertension Status: Chronic (4) Diabetes Qualifiers: Diabetes mellitus type: type 2 Diabetes mellitus complication status: with kidney complications (5) HTN (hypertension) Qualifiers: Hypertension type: essential hypertension Qualified Code(s): I10 - Essential (primary) hypertension
[2017-12-24] MEDS: clonazePAM 1 MG Tablet PO SCH (09:25)
[2017-12-24] MEDS: Sertraline 100 MG Tablet PO SCH (09:26)
[2017-12-24] MEDS: Multivitamin/Minerals Therapeutic Tablet PO SCH (09:26)
[2017-12-24] MEDS: Lisinopril 20 MG Tablet PO SCH (09:26)
[2017-12-24 11:51] VITALS: BP 148/74; PULSE 82; RESP 18; TEMP 97.9; O2SAT 99
== END 2017-12-24 12:55 | disposition home or self-care (01) ==
LOC: NEPE 16:00 → NEDA 16:00 → NEPHCDU 12-23 00:58
PROVIDERS: ADMIT Hospitalist; ATTEND Hospitalist